=== PATIENT | female | born 1965 | race African-American/Black ===

== ENCOUNTER 2023-06-12 10:46 | Emergency (ER) | payer OTHER, SELFPAY ==
[2023-06-12] VITALS (8 sets, daily range): BP systolic 97–112; BP diastolic 65–68; PULSE 66–88; RESP 17–28; TEMP 36.7; O2SAT 94–99
--- NOTE | ~2023-06-12 | CT_ITS ---
EXAMINATION: CT brain wo con DATE: 06/12/2023 11:05 INDICATION: Slurred speech, left facial droop TECHNIQUE: Computed tomography (CT) of the head was performed without intravenous contrast. The mA wa s adjusted according to patient size. Iterative reconstruction technique was employed. Exam dose: 60 5.33 mGy-cm total exam DLP. COMPARISON: None FINDINGS: Bilateral carotid siphon internal carotid artery calcifications. No intracranial mass lesion or hemorrhage or recent or remote cerebrovascular accident is evident. CT is not sensitive for detection of hyperacute nonhemorrhagic cerebrovascular accident. No midline shift or mass effect. Normal ventricular size. No subdural or epidural hematoma. No fracture or bone destruction of the cranial vault with the exception of an old blowout fracture of the medial wall of the right orbit. The paranasal sinuses and mastoid air cells are unremarkable. IMPRESSION: No acute intracranial finding Cerebral atherosclerosis Old blowout fracture of the medial wall of the right orbit Dr. Moser telephoned the report on 06/12/2023 at [address] ER physician Dr. Turk. Reviewed, dictated and finalized at [facility]. Reviewed, dictated and finalized at [facility]. [employer] [place] IMPRESSION: No acute intracranial finding Cerebral atherosclerosis Old blowout fracture of the medial wall of the right orbit Dr. Moser telephoned the report on 06/12/2023 at [address] ER physician [address] South rangel.
--- NOTE | 2023-06-12 10:58 | ECG_ITS ---
Measurements Intervals [place] Rate: 89 P: 92 ME: 181 QRS: -10 QRSD: 93 T: 111 QT: 375 QTc: 458 Interpretive Statements SINUS RHYTHM DELAYED PRECORDIAL R/S TRANSITION ST-T WAVE ABNORMALITY IN HIGH LATERAL LEADS- CONSIDER ISCHEMIA BASELINE ARTIFACT- I, II ,III, AVR, AVL, AVF, V1-V3 ABNORMAL ECG NO PREVIOUS ECG AVAILABLE FOR COMPARISON Electronically Signed On 06-12-2023 11:45:36 ASSISTANT BOYS TRACK COACH by Merrill Cunningham D.O.
[2023-06-12 11:23] LABS: Glucose Point of Care 263 mg/dl (65-105)
[2023-06-12 11:39] LABS: Basophils Percent Auto 0.4 % (0.2-1.2); Eosinophils Absolute Auto 0.1 K/mm3 (0-0.3); Eosinophils Percent Auto 1.3 % (0-4.4); Hematocrit 39.6 % (37.0-47.0); Hemoglobin 12.3 g/dL (12.0-15.0); Immature Granulocyte Absolute 0.04 K/mm3 (0.00-0.031); Immature Granulocyte Percent A 0.7 % (0-0.5); Lymphocytes Absolute Auto 1.73 K/mm3 (0.9-3.2); Lymphocytes Percent Auto 31.9 % (18.3-44.2); Mean Corpuscular HGB Conc 31.1 g/dl (32-36); Mean Corpuscular Hemoglobin 28.4 pg (26-34); Mean Corpuscular Volume 91.5 fl (80-100); Mean Platelet Volume 9.6 fl (7.4-10.4); Monocytes Absolute Auto 0.5 K/mm3 (0.1-0.6); Monocytes Percent Auto 8.3 % (2.6-8.5); Neutrophils Absolute Auto 3.1 K/mm3 (1.3-6.7); Neutrophils Percent Auto 57.4 % (45.5-73.1); Platelet Count Result 365 k/mm3 (150-375); Red Blood Count 4.33 M/mm3 (4.2-5.4); Red Cell Distribution Width 14.5 % (11.5-14.5); White Blood Count 5.4 K/mm3 (4.5-10.0)
[2023-06-12 11:50] LABS: Alanine Aminotransferase 55 U/L (6-35); Alkaline Phosphatase 103 U/L (38-126); Anion Gap 12 mmol/L (8-16); Aspartate Amino Transferase 62 U/L (14-36); Bilirubin,Total 0.5 mg/dL (0.2-1.3); Blood Urea Nitrogen 10 mg/dL (7-17); Calcium 9.2 mg/dL (8.4-10.2); Carbon Dioxide 20 mmol/L (22-30); Chloride 103 mmol/L (98-107); Estimated CRCL calculation 87 ml/min; Estimated Glomerular Filt Rate > 60; Glucose 264 mg/dL (65-110); INR 1.2; Potassium 3.9 mmol/L (3.4-5.0); Prothrombin Time 15.6 Seconds (11.1-14.7); Sodium 135 mmol/L (137-145)
[2023-06-12 12:02] LABS: Troponin I < 0.012 ng/mL (0.000-0.034)
--- NOTE | 2023-06-12 12:07 | ED.RECABL ---
HPI - Recheck/Abnormal Lab/Rx General Chief Complaint: Recheck/Abnormal Lab/Rx Stated Complaint: WANTS SECOND OPINION ON NEURO PROBLEM Time Seen by Provider: 06/12/23 11:30 Source: patient and family Mode of arrival: ambulatory Limitations: no limitations History of Present Illness HPI narrative: Patient is a 57-year-old female who presents to the ED with neurologic concerns. Daughter at bedside assisted in providing information. Reports patient has had intermittent episodes of left-sided weakness, shakiness, slurred speech over the last several weeks. She was admitted at [facility] on 05/30-06/01 at which point she was told she was either having mini strokes or seizures. She did have 2 different EEGs performed and was started on seizure medication. Patient reports compliance with this medicine. Unsure of name. Daughter reports since returning home from [facility], patient has had daily episodes, that seem to be worsening in severity, frequency, duration. States episode today began around 1030am and has since resolved. Longest episode has been 13 minutes. Patient does also report intermittent blurry vision and a cough for the last 3 months. Denies dizziness, lightheadedness, headache, chest pain or shortness of breath. Denies fevers. Denies abdominal pain, nausea, vomiting. Related Data Allergies Allergy/AdvReac Type Severity Reaction Status Date / Time morphine Allergy Hives Verified 06/12/23 11:35 Penicillins Allergy Hives Verified 06/12/23 11:35 Review of Systems Review of Systems: CONSTITUTIONAL: Denies fever, chills, or sweats. ENT: Denies rhinorrhea, congestion, sore throat. CARDIOVASCULAR: Denies chest pain. RESPIRATORY: see HPI. GASTROINTESTINAL: Denies abdominal pain, nausea, vomiting, or diarrhea. NEUROLOGIC: See HPI. All systems reviewed & are unremarkable except as noted in HPI and below Exam Narrative: GENERAL: Well appearing, obese with BMI of 34.1, non-toxic, in no acute distress. HEAD: Normocephalic, atraumatic. EYES: PERRL/EOMI, conjunctivae clear bilaterally. No nystagmus. Patient reporting photophobia. NECK: Supple. No meningeal signs. RESPIRATORY: Airway patent, respirations nonlabored. Clear to auscultation bilaterally, no rales, rhonchi, wheezing. CARDIOVASCULAR: Regular rate and rhythm without murmurs, rubs, or gallops. Peripheral pulses 2+ and equal bilaterally. MUSCULOSKELETAL: Moves all extremities. No gross deformities. SKIN: Warm, dry, normal color. No rashes. NEURO: A&O X3. Speech somewhat slurred, though not aphasic. Follows commands. CN II-XII grossly intact, no significant facial droop noted. Slight deviation of tongue to right. Sensation grossly intact. No ataxic movements. Decreased strength in LLE compared to right. Fairly equal recoverer strength bilaterally and no significant pronator drift noted. [id number]-[id number] and bgsbzy-rh-navi testing intact bilaterally, though less coordinated on the left. PSYCHIATRIC: Appropriate mood and affect. Normal interaction. Course Vital Signs Vital signs: Vital Signs Pulse Rate 83 06/12/23 11:13 Respiratory Rate 23 H 06/12/23 11:13 Pulse Oximetry 97 06/12/23 11:13 Temperature 98.0 F 06/12/23 11:15 Pulse Rate 69 06/12/23 12:01 Respiratory Rate 28 H 06/12/23 12:01 Blood Pressure 111/65 06/12/23 12:01 Pulse Oximetry 95 06/12/23 12:01 Oxygen Delivery Room Air 06/12/23 11:15 MDM - Recheck/Abnormal Lab/Rx MDM Narrative Medical decision making narrative: Patient presented to ED with concern for neurologic complaints, recent admission at [facility] for seizures versus stroke symptoms. Wanting a second opinion. Reports episodes of left-sided weakness and slurred speech have been increasing in severity, duration or frequency. Unable to view any records from patient's recent admission. She reports she is on a seizure medicine and has been compliant with this. Unsure of name. Unable to view med rec. patient reporting symptoms have
--- NOTE | 2023-06-12 12:15 | PC.NURSE ---
Pt refusing further testing and wants to sign out because there is nothing you can do for me here . Pt advised of risks and tells nurse her family will take her to another facility.
--- NOTE | 2023-06-12 12:22 | PC.NURSE ---
Pt refused to give registration any insurance information or address.
--- NOTE | 2023-06-12 12:31 | PC.NURSE ---
Called [facility] transfer line at 12:15 patient left AMA Called [facility] and cancelled transfer at 12:30
== END 2023-06-12 12:30 | disposition left against medical advice (07) ==
LOC: ANHED 12:28
PROVIDERS: Emergency Medicine; Emergency Provider Physician Assistant
DX: R53.1 Weakness (principal); R47.81 Slurred speech; R94.31 Abnormal electrocardiogram [ECG] [EKG]; I67.2 Cerebral atherosclerosis
CPT/HCPCS: 36415; 70450; 80053; 82948; 84484; 85025; 85610; 85730; 93005; 99284

== ENCOUNTER 2023-07-04 17:37 | Emergency (ER) | payer OTHER, SELFPAY ==
[2023-07-04] VITALS (45 sets, daily range): BP systolic 89–142; BP diastolic 51–93; PULSE 79–96; RESP 11–17; TEMP 35.9; O2SAT 90–100
--- NOTE | ~2023-07-04 | XR_ITS ---
EXAMINATION: XR chest 1V portable DATE: 07/04/2023 18:05 INDICATION: Seizure and fall TECHNIQUE: frontal view of the chest was obtained. COMPARISON: None FINDINGS: Pulmonary vascular congestion and increased interstitial pattern in the bilateral lower lungs likely mild pulmonary edema although differential includes atelectasis or pneumonia. No pneumothorax or defi nitive pleural effusion. Borderline heart size accounting for AP technique. Left pectoral implantable monitoring specialist. IMPRESSION: 1. Pulmonary vascular congestion and increased interstitial pattern in the bilateral lower lung zones most likely congestive heart failure related mild pulmonary edema with differential including atelec tasis or pneumonia. 2. Borderline heart size. Reviewed, dictated and finalized at location [facility]. GENCY ROOM CLINICIAN IMPRESSION: 1. Pulmonary vascular congestion and increased interstitial pattern in the bila teral lower lung zones most likely congestive heart failure related mild pulmon alfredo edema with differential including atelectasis or pneumonia. 2. Borderline heart size.
--- NOTE | ~2023-07-04 | CT_ITS ---
EXAMINATION: CT cervical spine wo con DATE: 07/04/2023 18:16 INDICATION: Seizure with fall TECHNIQUE: Computed tomography (CT) of the cervical spine was performed without intravenous contrast. Automated exposure control and iterative reconstruction technique were employed. The dose-length pro duct was 711.02 mGy-cm. COMPARISON: None FINDINGS: 4 degrees cervicothoracic levocurvature. Straightening of the normal cervical lordosis which could be positional or due to muscle spasm. Vertebral body heights are normal. No fracture. Disc heights are normal with small anterior endplate osteophytes at C5-C6, C6-C7 and T1-T2. No central canal stenosis. Multilevel bilateral moderate to severe cervical facet osteoarthritis most prominent at the right up per and left mid to upper cervical spine. This contributes to mild neural foraminal stenosis at a few levels on both the left and right. Visualized cervical soft tissues are unremarkable. Mild periphera l paraseptal emphysema in the visualized upper lungs. Enlargement of the main pulmonary artery consis tent with pulmonary arterial hypertension. IMPRESSION: 1. Straightening of the normal cervical lordosis which could be positional or due to muscle spasm. No other acute osseous abnormality. 2. Mild cervical spondylosis with bilateral moderate to severe facet osteoarthritis. 3. Mild paraseptal emphysema in the upper lungs.. Reviewed, dictated and finalized at location [facility]. OAT OPERATOR IMPRESSION: 1. Straightening of the normal cervical lordosis which could be positional or d ue to muscle spasm. No other acute osseous abnormality. 2. Mild cervical spondylosis with bilateral moderate to severe facet osteoarthr itis. 3. Mild paraseptal emphysema in the upper lungs..
--- NOTE | ~2023-07-04 | CT_ITS ---
EXAMINATION: CT brain wo con DATE: 07/04/2023 18:16 INDICATION: Seizure and fall TECHNIQUE: Computed tomography (CT) of the head was performed without intravenous contrast. Sagittal and coronal reconstructions were performed. The mA was adjusted according to patient size. Iterative reconstruction technique was employed. The dose-length product was 605.33 mGy-cm. COMPARISON: head CT dated 06/12/2023 FINDINGS: No fracture. No acute intracranial hemorrhage, acute infarction or abnormal extra axial fluid collect ion. Ventricles are normal and symmetric. No mass/mass effect. The orbits, paranasal sinuses and mast oid air cells are normal. IMPRESSION: 1. Normal head CT. Reviewed, dictated and finalized at location [facility]. C CONSULTANT IMPRESSION: 1. Normal head CT.
--- NOTE | 2023-07-04 17:43 | ECG_ITS ---
Measurements Intervals [place] Rate: 95 P: 60 VT: 186 QRS: -17 QRSD: 88 T: 106 QT: 359 QTc: 453 Interpretive Statements SINUS RHYTHM POSSIBLE ANTERIOR MYOCARDIAL INFARCTION , AGE INDETERMINATE T-WAVE ABNORMALITY, CONSIDER ISCHEMIA Electronically Signed On 07-05-2023 12:28:07 REGISTERED NURSE CARDIAC by Beto Jasmine M.D.
--- NOTE | 2023-07-04 18:04 | ED.SEIZURE ---
HPI - Seizure General Chief Complaint: Seizure <Pepito Baker MD - Last Filed: 07/04/23 18:31> Stated Complaint: Seizures <Pepito Baker MD - Last Filed: 07/04/23 18:31> Time Seen by Provider: 07/04/23 17:40 <Pepito Baker MD - Last Filed: 07/04/23 18:31> History of Present Illness HPI Narrative: 57 YEARS OLD FEMALE HAD A WITNESSED SEIZURE AT [facility] LASTED 8-10 MINUTES FULL TONIC CLONIC, EMS STATES THAT PATIENT HAD A DIAGNOSIS OF SEIZURE 4 MONTHS AGO AND FOLLOWED A NEUROLOGIST AT [facility], EMS STATES SHE WAS GIVEN 10 MG OF VERSED IM PRIOR TO ARRIVAL TO OUR EMERGENCY ROOM PATIENT ARRIVED SNORING BUT ALERT TO AROUSE. NO FAMILY MEMBER AT THE BEDSIDE, UNKNOWN MEDICATIONS AND PAST MEDICAL HISTORY. I WAS ABLE TO SPEAK TO SAJI MANN/PATIENT'S DAUGHTER, ON THE PHONE/[phone] WHO TOLD ME THAT PATIENT HAD HISTORY OF DIABETES, HYPERTENSION, HYPERLIPIDEMIA, HYPOTHYROIDISM, SEIZURE DIAGNOSED ROUGHLY 4 MONTHS AGO STARTED ON [place] 500 B.I.D[address] HAD ANOTHER SEIZURE ON JUNE 12, 2023 AND WAS HOSPITALIZED AT [facility] OVERNIGHT AND KEPPRA WAS INCREASED TO 1000 B.I.D.. <Pepito Baker MD - Last Filed: 07/04/23 18:31> Related Data Allergies/Adverse Reactions: Allergies Allergy/AdvReac Type Severity Reaction Status Date / Time morphine Allergy Hives Verified 06/12/23 11:35 Penicillins Allergy Hives Verified 06/12/23 11:35 <Pepito Baker MD - Last Filed: 07/04/23 18:31> Review of Systems Review of Systems: ROS unobtainable: Yes unobtainable due to medical condition <Pepito Baker MD - Last Filed: 07/04/23 18:31> Exam Narrative: GENERAL APPEARANCE: WELL-DEVELOPED, WELL-NOURISHED, LAYING IN BED, SNORING, NASAL CANNULA ON SKIN: NORMAL COLOR HEAD: NORMOCEPHALIC, NONTRAUMATIC EYES: CLEAR CONJUNCTIVA ENT: OROPHARYNX NORMAL, EARS NORMAL, NOSE NORMAL NECK: C-COLLAR PLACED CHEST AND RESPIRATORY: AIRWAY PATENT, NO RESPIRATORY DISTRESS, NO ACCESSORY MUSCLE USE HEART: REGULAR RATE/RHYTHM ABDOMEN: SOFT, NONTENDER, NO ORGANOMEGALY, QUIET BOWEL SOUNDS VASCULAR: NORMAL PERIPHERAL PULSES, NORMAL CAPILLARY REFILL. MUSCULOSKELETAL: PATIENT IS UNDER THE INFLUENCE OF VERSED NOT FOLLOWING VERBAL COMMANDS NEUROLOGIC: AROUSABLE, NOT FOLLOWING VERBAL COMMANDS <Pepito Baker MD - Last Filed: 07/04/23 18:31> Course Course Emergency Course: 0500: Received sign-out on this patient pending imaging and blood work. CT brain and C-spine without acute abnormalities. Chest x-ray with interstitial edema. Patient denies shortness of breath. Patient has been observed for approximately 10 hours and she is now back to baseline. States that she has an appointment coming up with both her stores naval and her neurologist. She has already been loaded with Keppra, advised that she call her neurologist to let them know that she had another seizure. Patient is safe for outpatient management. She is agreeable with this plan. Discharged in stable condition. <Shanna Ordaz MD - Last Filed: 07/05/23 05:07> Vital Signs Vital signs: Vital Signs Temperature 96.7 F L 07/04/23 17:42 Pulse Rate 96 07/04/23 17:42 Respiratory Rate 16 07/04/23 17:42 Blood Pressure 136/84 07/04/23 17:42 Pulse Oximetry 90 07/04/23 17:42 Oxygen Delivery Room Air 07/04/23 17:42 Temperature 96.7 F L 07/04/23 17:42 Pulse Rate 80 07/05/23 02:01 Respiratory Rate 12 07/05/23 02:01 Blood Pressure 88/60 L 07/05/23 02:01 Pulse Oximetry 92 07/04/23 23:15 Oxygen Delivery Nasal Cannula 07/04/23 19:30 Oxygen Flow Rate 2 07/04/23 19:30 <Pepito Baker MD - Last Filed: 07/04/23 18:
[2023-07-04 18:08] LABS: Base Excess ABG -1.7 mEq/l (+/-2.0); Device NASAL CANNULA; Fractional Inspired Oxygen 28 %; HCO3 ABG 23.7 mEq/l (22.0-26.0); Modified Allen's Test Pass; Oxygen Content ABG 16.2 %vol (16.0-22.0); Oxygen Saturation ABG 94.9 % (95.0-100.0); Oxyhemoglobin 92.6 % THb (90.0-100.0); PCO2 ABG 42.9 mmHg (35.0-45.0); PO2 FiO2 Ratio Arterial Blood 2.75 %; Site Drawn LEFT RADIAL; Total Hemoglobin 12.4 g/dL (12.0-18.0); pH ABG 7.361 (7.350-7.450)
[2023-07-04] MEDS: SODIUM CHLORIDE 0.9% IV 1,000 ML 999 ML IV CONT ×2 (18:33→23:36)
[2023-07-04] MEDS: levETIRAcetam 1000MG/NACL100ML 1,000 MG/100 ML BAG 400 MG IVPB (18:34)
[2023-07-04 18:44] LABS: Basophils Percent Auto 0.5 % (0.2-1.2); Eosinophils Absolute Auto 0.2 K/mm3 (0-0.3); Eosinophils Percent Auto 2.8 % (0-4.4); Hematocrit 37.8 % (37.0-47.0); Hemoglobin 11.8 g/dL (12.0-15.0); Immature Granulocyte Absolute 0.02 K/mm3 (0.00-0.031); Immature Granulocyte Percent A 0.4 % (0-0.5); Lymphocytes Absolute Auto 1.68 K/mm3 (0.9-3.2); Lymphocytes Percent Auto 29.6 % (18.3-44.2); Mean Corpuscular HGB Conc 31.2 g/dl (32-36); Mean Corpuscular Hemoglobin 28.5 pg (26-34); Mean Corpuscular Volume 91.3 fl (80-100); Mean Platelet Volume 11.5 fl (7.4-10.4); Monocytes Absolute Auto 0.5 K/mm3 (0.1-0.6); Monocytes Percent Auto 9.5 % (2.6-8.5); Neutrophils Absolute Auto 3.2 K/mm3 (1.3-6.7); Neutrophils Percent Auto 57.2 % (45.5-73.1); Platelet Count Result 345 k/mm3 (150-375); Red Blood Count 4.14 M/mm3 (4.2-5.4); Red Cell Distribution Width 14.7 % (11.5-14.5); White Blood Count 5.7 K/mm3 (4.5-10.0)
--- NOTE | 2023-07-04 19:28 | PC.NURSE ---
This RN assumed care of patient. This RN took patient report from JOSE Chew.
[2023-07-04 20:51] LABS: Appearance Urine Clear (Clear); Bilirubin Urine Negative (Negative); Blood Urine Negative (Negative); Color Urine Yellow (Yellow); Glucose Urine UA 3+ mg/dL (Negative); Ketones Urine Negative (Negative); Leukocyte Esterase Ur Negative LEU/UL (Negative); Nitrate Urine Negative (Negative); Protein Urine Negative (Negative); Specific Grav Ur 1.014 (1.001-1.035); Urobilinogen Urine 0.2 mg/dL (<2.0)
[2023-07-04 20:52] LABS: INR 1.1; Partial Thromboplastin Time 34.2 SECONDS (22.3-36.8); Prothrombin Time 14.6 Seconds (11.1-14.7)
[2023-07-04 20:53] LABS: Ethanol < 10 mg/dL (<10)
[2023-07-04 20:54] LABS: Alanine Aminotransferase 58 U/L (6-35); Albumin Level 3.5 g/dL (3.5-5.1); Alkaline Phosphatase 94 U/L (38-126); Anion Gap 5 mmol/L (8-16); Aspartate Amino Transferase 62 U/L (14-36); Bilirubin,Total 0.5 mg/dL (0.2-1.3); Blood Urea Nitrogen 12 mg/dL (7-17); Calcium 8.7 mg/dL (8.4-10.2); Carbon Dioxide 28 mmol/L (22-30); Chloride 106 mmol/L (98-107); Creatine Kinase 58 U/L (30-135); Estimated Glomerular Filt Rate > 60; Glucose 161 mg/dL (65-110); Potassium 3.7 mmol/L (3.4-5.0); Sodium 139 mmol/L (137-145)
[2023-07-04 21:03] LABS: Add Urine Microscopic? NO
[2023-07-04 21:05] LABS: Troponin I < 0.012 ng/mL (0.000-0.034)
[2023-07-04 21:07] LABS: Amphetamine Screen Urine Negative (Negative); Barbiturate Screen Urine Negative (Negative); Benzodiazepines Screen Urine Positive (Negative); Cannabinoid Screen Urine Negative (Negative); Cocaine Screen Urine Negative (Negative); Methadone Screen Urine Negative (Negative); Opiate Screen Urine Negative (Negative); Phencyclidine Screen Urine Negative (Negative)
[2023-07-05] VITALS (51 sets, daily range): BP systolic 88–132; BP diastolic 54–98; PULSE 73–89; RESP 10–31; O2SAT 94–99
== END 2023-07-05 08:56 | disposition home or self-care (01) ==
PROVIDERS: Emergency Provider Emergency Medicine
DX: G40.909 Epilepsy, unspecified, not intractable, without status epilepticus (principal); I10 Essential (primary) hypertension; E11.9 Type 2 diabetes mellitus without complications; E78.5 Hyperlipidemia, unspecified; E03.9 Hypothyroidism, unspecified; R94.31 Abnormal electrocardiogram [ECG] [EKG]; M47.812 Spondylosis without myelopathy or radiculopathy, cervical region; J43.9 Emphysema, unspecified; R09.89 Other specified symptoms and signs involving the circulatory and respiratory systems; R91.8 Other nonspecific abnormal finding of lung field
CPT/HCPCS: 36415; 36600; 70450; 71045; 72125; 80053; 80307; 81003; 82550; 82805; 84484; 85025; 85610; 85730; 93005; 96361; 96365; 99284; J1953; J7030